=== PATIENT | female | born 1940 | race Caucasian/White ===

== ENCOUNTER 2024-01-09 06:07 | Inpatient (IN) | payer MEDICARE ==
[2024-01-08 12:04] VITALS: BMI 25.8
[2024-01-09] MEDS ORDERED: Lidocaine 2% PF 5 ML VIAL ONE (07:01)
[2024-01-09] MEDS ORDERED: Rocuronium Bromide 10 MG/ML (10ML VIAL) ONE (07:02)
[2024-01-09] MEDS ORDERED: fentaNYL 50 mcg/mL 1 mL Vial ONE ×6 (07:02→11:01)
[2024-01-09] MEDS ORDERED: Dexamethasone 4 mg/ml Vial ONE (07:02)
[2024-01-09] MEDS ORDERED: PROPOFOL 20 ML ONE (07:02)
[2024-01-09] MEDS ORDERED: Ondansetron PF 4 MG/2 ML Vial ONE ×2 (07:02→10:27)
[2024-01-09] MEDS ORDERED: Acetaminophen 500 MG TAB ONE (07:06)
[2024-01-09] MEDS ORDERED: Lidocaine 4% PF 5 ML AMP ONE (07:07)
[2024-01-09] MEDS ORDERED: Indocyanine Green 25 MG/10 ML VIAL ONE (07:09)
[2024-01-09] MEDS ORDERED: Bupivacaine/Epinephrine 0.25% 30 ML VIAL ONE (07:09)
[2024-01-09] MEDS ORDERED: Sevoflurane 250 ML INH ANEST BOTTLE ONE (07:18)
[2024-01-09] MEDS ORDERED: CEFAZOLIN 2 GM VIAL ONE (07:28)
[2024-01-09] MEDS ORDERED: Iopamidol 30 ML ONE (07:41)
[2024-01-09] MEDS ORDERED: ePHEDrine Sulfate 50 MG/10 ML VIAL ONE (07:55)
[2024-01-09] MEDS ORDERED: SUGAMMADEX SODIUM 200 MG/2 ML VIAL ONE (08:42)
[2024-01-09] MEDS ORDERED: Glucagon 1 MG/ML KIT ONE (09:03)
[2024-01-09] MEDS ORDERED: HYDROcodone/Acetaminophen 5/325 mg Tablet ONE (12:29)
[2024-01-09] MEDS ORDERED: Acetaminophen 325 MG TAB PO PRN (14:53)
[2024-01-09] MEDS ORDERED: Ipratropium/Albuterol 3 ML NEB NEB PRN (14:53)
[2024-01-09] MEDS ORDERED: Calcium Carbonate 500 MG ChewTAB PO PRN (14:53)
[2024-01-09] MEDS ORDERED: Polyethylene Glycol 3350 17 GM Packet PO PRN (14:53)
[2024-01-09] MEDS ORDERED: Dextrose 50% Abboject 50 ML SYRINGE SLOW IVP PRN (14:53)
[2024-01-09] MEDS ORDERED: Morphine 2 MG/ML VIAL SLOW IVP PRN (14:53)
[2024-01-09] MEDS ORDERED: Mag-Al 1200 mg/1200 mg/30 ML UDCUP PO PRN (14:53)
[2024-01-09] MEDS ORDERED: Glucagon 1 MG/ML KIT IM PRN (14:53)
[2024-01-09] MEDS ORDERED: Dextrose 5% in Water 1,000 ML IV PRN (14:53)
[2024-01-09] MEDS ORDERED: Ondansetron PF 4 MG/2 ML Vial IVP PRN (14:53)
[2024-01-09] MEDS ORDERED: Promethazine HCl 25 MG/ML VIAL IM PRN (14:53)
[2024-01-09] MEDS: Ketorolac Tromethamine 30 MG (1 mL) VIAL IVP SCH ×2 (16:59→23:05)
[2024-01-09] MEDS: Lactated Ringer's 1,000 ML IV SCH (17:01)
[2024-01-09] MEDS: HYDROcodone/Acetaminophen 10/325 mg Tablet PO PRN (20:39)
[2024-01-09] MEDS: Famotidine 20 MG TAB PO SCH (20:39)
[2024-01-09] MEDS: Melatonin 3 MG TAB PO SCH (20:39)
[2024-01-09] MEDS ORDERED: Famotidine/PF 20 mg/2ml Vial SLOW IVP PRN (21:00)
[2024-01-10 04:31] LABS: #Basophils 0.03 10x3/uL (0.0-0.2); #Eosinophils 0.03 10x3/uL (0.0-0.5); #Monocytes 0.89 10x3/uL (0.0-1.1); #Neutrophils 7.62 10x3/uL (1.5-8.4); %Basophils 0.3 % (0.0-2.0); %Eosinophils 0.3 % (0.0-6.0); %Lymphocytes 11.4 % (18.0-47.0); %Monocytes 9.2 % (0.0-10.0); %Neutrophils 78.5 % (40.0-75.0); Hematocrit 34.9 % (34.9-44.5); Hemoglobin 11.6 g/dL (12.0-15.5); Mean Corpuscular HGB CONC 33.2 g/dL (32.0-36.0); Mean Corpuscular Hemoglobin 32.2 pg (27.0-33.0); Mean Corpuscular Volume 96.9 fL (81.6-98.3); Mean Platelet Volume 11.3 fL (7.4-10.4); Platelet Count 170 10x3/uL (150-450); RBC Distribution Width 13.7 % (11.5-14.5); White Blood Cell (WBC) Count 9.7 10x3/uL (3.5-10.5)
[2024-01-10 04:38] LABS: ALT (SGPT) 66 U/L (8-55); AST (SGOT) 60 U/L (5-34); Alkaline Phosphatase 49 U/L (40-110); Anion Gap 12 mmol/L (10-20); BUN (Urea Nitrogen) 9 mg/dL (9.8-20.1); Bilirubin, Total 0.6 mg/dL (0.2-1.2); Calc. Creatinine Clearance 75 mL/min (70-130); Calcium 8.7 mg/dL (7.8-10.44); Carbon Dioxide 22 mmol/L (23-31); Chloride 106 mmol/L (98-107); Estimated GFR 87; Globulin 2.4 g/dL (2.4-3.5); Glucose 96 mg/dL (83-110); Lipase 10 U/L (8-78); Potassium 4.1 mmol/L (3.5-5.1); Protein, Total 5.4 g/dL (5.8-8.1); Sodium 136 mmol/L (136-145)
[2024-01-10] MEDS ORDERED: Indomethacin 50 MG SUPP PR SCH (06:00)
[2024-01-10] MEDS ORDERED: LevoFLOXacin 500 mg/D5W 500 MG in Premix 1 BAG IVPB SCH (06:00)
[2024-01-10] MEDS ORDERED: Non-Formulary Medication 1 EACH (Potassium [Potassium] 99 MG Tablet) PO SCH (09:00)
[2024-01-10] MEDS ORDERED: Iopamidol 30 ML ONE (09:43)
[2024-01-10] MEDS ORDERED: Glucagon 1 MG/ML KIT ONE (09:43)
[2024-01-10] MEDS ORDERED: Indomethacin 50 MG SUPP ONE (09:43)
[2024-01-10] MEDS ORDERED: Rocuronium Bromide 10 MG/ML (10ML VIAL) ONE (10:41)
[2024-01-10] MEDS ORDERED: PROPOFOL 20 ML ONE (10:41)
[2024-01-10] MEDS ORDERED: fentaNYL 50 mcg/mL 1 mL Vial ONE ×2 (10:41→12:04)
[2024-01-10] MEDS ORDERED: Lidocaine 1% PF 5 ML VIAL ONE (10:41)
[2024-01-10] MEDS ORDERED: Dexamethasone 4 mg/ml Vial ONE (10:45)
[2024-01-10] MEDS ORDERED: Ondansetron PF 4 MG/2 ML Vial ONE (10:45)
[2024-01-10] MEDS ORDERED: SUGAMMADEX SODIUM 200 MG/2 ML VIAL ONE (10:45)
[2024-01-10] MEDS: Aspirin 81 mg Enteric Coated Tablet PO SCH (11:04)
[2024-01-10] MEDS: Magnesium Oxide 250 MG TAB PO SCH (11:07)
[2024-01-10] MEDS: hydrALAZINE 20 MG/ML VIAL SLOW IVP PRN (13:39)
[2024-01-11 04:02] LABS: #Basophils 0.02 10x3/uL (0.0-0.2); #Eosinophils 0.04 10x3/uL (0.0-0.5); #Monocytes 0.81 10x3/uL (0.0-1.1); #Neutrophils 6.08 10x3/uL (1.5-8.4); %Basophils 0.2 % (0.0-2.0); %Eosinophils 0.5 % (0.0-6.0); %Neutrophils 75.1 % (40.0-75.0); Hematocrit 34.1 % (34.9-44.5); Hemoglobin 11.2 g/dL (12.0-15.5); Mean Corpuscular HGB CONC 32.8 g/dL (32.0-36.0); Mean Corpuscular Volume 97.4 fL (81.6-98.3); Mean Platelet Volume 11.4 fL (7.4-10.4); Platelet Count 168 10x3/uL (150-450); RBC Distribution Width 13.8 % (11.5-14.5); White Blood Cell (WBC) Count 8.1 10x3/uL (3.5-10.5)
[2024-01-11 04:17] LABS: ALT (SGPT) 129 U/L (8-55); AST (SGOT) 130 U/L (5-34); Albumin 2.7 g/dL (3.4-4.8); Alkaline Phosphatase 90 U/L (40-110); Anion Gap 12 mmol/L (10-20); BUN (Urea Nitrogen) 7 mg/dL (9.8-20.1); Bilirubin, Total 0.6 mg/dL (0.2-1.2); Calc. Creatinine Clearance 84 mL/min (70-130); Calcium 8.6 mg/dL (7.8-10.44); Carbon Dioxide 23 mmol/L (23-31); Chloride 107 mmol/L (98-107); Estimated GFR 90; Globulin 2.4 g/dL (2.4-3.5); Glucose 96 mg/dL (83-110); Potassium 3.9 mmol/L (3.5-5.1); Protein, Total 5.1 g/dL (5.8-8.1); Sodium 138 mmol/L (136-145)
[2024-01-11 07:22] VITALS: TEMP 98.1
[2024-01-11 12:12] VITALS: BP 153/86
== END 2024-01-11 14:40 | disposition home or self-care (01) | DRG 418 ==
LOC: CSHSDC 06:07 → CSHPP 14:57
PROVIDERS: ADMIT Specialist; ATTEND Specialist
PROC: 0FT44ZZ Resection of Gallbladder, Percutaneous Endoscopic Approach (ICD-10-PCS; 2024-01-09)
PROC: 8E0W4CZ Robotic Assisted Procedure of Trunk Region, Percutaneous Endoscopic Approach (ICD-10-PCS; 2024-01-09)
PROC: BF141ZZ Fluoroscopy of Gallbladder, Bile Ducts and Pancreatic Ducts using Low Osmolar Contrast (ICD-10-PCS; 2024-01-09)
PROC: 0FC98ZZ Extirpation of Matter from Common Bile Duct, Via Natural or Artificial Opening Endoscopic (ICD-10-PCS; principal; 2024-01-10)
DX: K80.20 Calculus of gallbladder without cholecystitis without obstruction (principal); C18.9 Malignant neoplasm of colon, unspecified; Z98.890 Other specified postprocedural states; Z90.49 Acquired absence of other specified parts of digestive tract; Z88.1 Allergy status to other antibiotic agents; Z88.8 Allergy status to other drugs, medicaments and biological substances
CPT/HCPCS: 36415; 47532; 74330; 80053; 83690; 85025; 88304; C1725; C1889; C1894; J0360; J1100; J1611; J1885; J2405; J2704; J3010; J7120; Q9967; S2900

== ENCOUNTER 2024-01-17 08:41 | Emergency (ER) | payer MEDICARE ==
[2024-01-17] MEDS ORDERED: Morphine 4 MG/ML VIAL ONE (09:30)
[2024-01-17] MEDS ORDERED: Ondansetron PF 4 MG/2 ML Vial ONE (09:30)
[2024-01-17 09:33] LABS: #Basophils 0.06 10x3/uL (0.0-0.2); #Eosinophils 0.53 10x3/uL (0.0-0.5); #Monocytes 0.79 10x3/uL (0.0-1.1); #Neutrophils 7.22 10x3/uL (1.5-8.4); %Basophils 0.6 % (0.0-2.0); %Eosinophils 5.5 % (0.0-6.0); %Lymphocytes 10.3 % (18.0-47.0); %Monocytes 8.2 % (0.0-10.0); %Neutrophils 74.8 % (40.0-75.0); Hematocrit 41.5 % (34.9-44.5); Hemoglobin 13.6 g/dL (12.0-15.5); Mean Corpuscular HGB CONC 32.8 g/dL (32.0-36.0); Mean Corpuscular Hemoglobin 31.6 pg (27.0-33.0); Mean Corpuscular Volume 96.3 fL (81.6-98.3); Mean Platelet Volume 10.5 fL (7.4-10.4); Platelet Count 224 10x3/uL (150-450); RBC Distribution Width 13.4 % (11.5-14.5); Red Blood Cell (RBC) Count 4.31 10x6/uL (3.90-5.03); White Blood Cell (WBC) Count 9.7 10x3/uL (3.5-10.5)
[2024-01-17 09:43] LABS: ALT (SGPT) 36 U/L (8-55); AST (SGOT) 26 U/L (5-34); Albumin 3.9 g/dL (3.4-4.8); Alkaline Phosphatase 87 U/L (40-110); Anion Gap 15 mmol/L (10-20); BUN (Urea Nitrogen) 13 mg/dL (9.8-20.1); Bilirubin, Total 0.5 mg/dL (0.2-1.2); Calc. Creatinine Clearance 0 mL/min (70-130); Calcium 9.8 mg/dL (7.8-10.44); Carbon Dioxide 25 mmol/L (23-31); Chloride 103 mmol/L (98-107); Estimated GFR 86; Globulin 2.9 g/dL (2.4-3.5); Glucose 106 mg/dL (83-110); Lipase 35 U/L (8-78); Magnesium 2.2 mg/dL (1.6-2.6); Potassium 4.2 mmol/L (3.5-5.1); Protein, Total 6.8 g/dL (5.8-8.1); Sodium 139 mmol/L (136-145)
[2024-01-17 09:46] LABS: Troponin I Less than 0.010 ng/mL (< 0.028)
[2024-01-17 11:09] LABS: Bilirubin Neg (Negative); Blood, Urine Negative (Negative); Clarity Clear (Clear); Glucose, Urine (Dipstick) Normal (Negative); Ketone, Urine Negative (Negative); Leukocyte Negative (Negative); Nitrite Negative (Negative); Protein, Urine (Dipstick) Negative (Neg-Trace); Urobilinogen Normal mg/dL (Less than 2)
[2024-01-17 11:24] LABS: Bacteria/HPF None Seen HPF (None Seen); CAUTI Indications for Culture Pelvic or flank pain; RBC/HPF None Seen HPF (0-3); Squamous Epithelial 0-3 HPF (0-3); Urine Culture Reflex No No; WBC/HPF None Seen HPF (0-3)
[2024-01-17] MEDS ORDERED: Iopamidol 300 61% 100 ML VIAL FS ONE (12:03)
== END 2024-01-17 12:45 ==
LOC: CSHERS 08:41
DX: R53.1 Weakness (principal)
CPT/HCPCS: 71045; 74177; 80053; 81001; 83605; 83690; 83735; 84484; 85025; 93005; J2272; J2405; 96374; 96375; Q9967